=== PATIENT | female | born 1955 | race Asian ===

== ENCOUNTER 2019-11-29 11:40 | Emergency (ER) | payer OTHER ==
--- NOTE | 2019-11-29 11:47 | PDOC ---
History of Present Illness - General Chief Complaint: Bite Stated Complaint: BIT BY A RACCOON ON RIGHT HAND LAST NIGHT Time Seen by Provider: 11/29/19 11:46 - History of Present Illness Initial Comments: 11/29/19 12:56 64F with no significant PMH presents to ED after a raccoon bite when she was feeding them in her backyard. Initially it bled, she washed it at home but came in because of rabies prophylaxis. She reports minimal pain at the right hand at the site w/o erythema, warmth, or drainage. Denies any other symptoms. PMH: as in HPI SH: see below Meds: none Allergies: NKDA ROS GENERAL/CONSTITUTIONAL: No fever or chills. No weakness. HEENT: No change in vision. No ear pain or discharge. No sore throat. CARDIOVASCULAR: No chest pain or shortness of breath RESPIRATORY: No cough, wheezing, or hemoptysis. GASTROINTESTINAL: No nausea, vomiting, diarrhea or constipation. GENITOURINARY: No dysuria, frequency, or change in urination. MUSCULOSKELETAL: No joint or muscle swelling or pain. No neck or back pain. Right hand pain. SKIN: No rash NEUROLOGIC: No headache, vertigo, loss of consciousness, or change in strength/sensation. ENDOCRINE: No increased thirst. No abnormal weight change HEMATOLOGIC/LYMPHATIC: No anemia, easy bleeding, or history of blood clots. ALLERGIC/IMMUNOLOGIC: No hives or skin allergy. PE GENERAL: AOx3; no apparent distress HEAD: No signs of trauma, NC/AT EYES: PERRLA, EOMI, sclera anicteric, conjunctiva clear ENT: Auricles normal inspection, hearing grossly normal, nares patent, moist mucosa, oropharynx clear without exudates. NECK: Normal ROM, supple, no LAD, JVD, or masses HEART: RRR, normal S1/S2, no murmurs, rubs, or gallops. Peripheral pulses 2+ and equal bilaterally. LUNGS: No distress, speaks full sentences, CTA bilaterally ABDOMEN: Soft, nontender. No guarding, no rebound. No masses EXTREMITIES: single small punctate wound at right thenar eminence, no surrounding swelling, erythema, or warmth NEUROLOGICAL: CNII-XII intact. Normal speech. No focal sensorimotor deficits SKIN: Warm, Dry, normal turgor. No rashes or lesions noted Assessment and Plan 1. Rabies vaccine and Ig + tetanus vaccine Kee Kimball, PGY1 Emergency Medicine Past History - Medical History Allergies/Adverse Reactions: Allergies Allergy/AdvReac Type Severity Reaction Status Date / Time No Known Allergies Allergy Unverified 11/29/19 11:42 Home Medications: Ambulatory Orders NK [No Known Home Medication] 11/29/19 Medical Decision Making - Medical Decision Making 11/29/19 13:00 64F p/w right hand punctate wound 2/2 raccoon bite. No evidence of cellulitis. - > no diagnostics indicated at this time -> wound irrigated with NS -> given rabies immunoglobin, rabies vaccine, and tetanus vaccine Pt stable for discharge, and was directed for dates of return for rabies vaccine series. Discharge - Discharge Information Problems reviewed: Yes Clinical Impression/Diagnosis: Rabies, need for prophylactic vaccination against Condition: Stable Disposition: HOME - Admission No - Follow up/Referral - Patient Discharge Instructions Patient Printed Discharge Instructions: DI for Rabies Vaccine, DI for Animal Bites Additional Instructions: You were seen in the emergency department for raccoon bite to the right hand. You were given rabies immunoglobin, rabies vaccine, and tetanus shot in the emergency department. Return to the emergency department on the following dates for rabies vaccine series: - Tuesday, December 01 - , December 05 - , December 12 Please follow up with your primary care physician regarding your visit to the emergency department. If you experience profound hand swelling, with warmth or drainage of pus, please return to the emergency department or call 911. - Post Discharge Activity
[2019-11-29 12:11] VITALS: BP 137/64; PULSE 62; TEMP 99.4; BMI 19.3
[2019-11-29] MEDS ORDERED: DIPHTH,PERTUSS(ACELL),TET 0.5 ML DISP.SYRIN IM ONE ×2 (12:12→12:28)
[2019-11-29] MEDS ORDERED: RABIES IMMUNE GLOBULIN 300 UNITS/1 ML VIAL IM ONE (12:12)
[2019-11-29] MEDS ORDERED: RABIES VACCINE (PCEC)/PF 2.5 UNIT/VIAL IM ONE ×2 (12:15→12:28)
[2019-11-29] MEDS ORDERED: RABIES IMMUNE GLOBULIN 300 UNITS/1 ML VIAL ONE (12:28)
--- NOTE | 2019-11-29 12:35 | PDOC ---
Attending Attestation - Resident Resident Name: Kee Kimball - ED Attending Attestation I have performed the following: I have examined & evaluated the patient, The case was reviewed & discussed with the resident, I agree w/resident's findings & plan - HPI HPI: 11/29/19 12:31 64 YOF with raccoon bite to her right hand, she was feeding a family of raccoons with tray and one got excited and bit her right hand mild pain to the area no f/c, discharge, weakness numbness or tingling - Physicial Exam PE: 11/29/19 12:32 General: NAD, well appearing Vascular: 2+ radialis pulses symmetric and equal. Neuro: distal insurance defense paralegal strength 5/5. sensation grossly intact in median/radial/ulnar distribution. MSK: soft compartments, Cap refill <2 sec. 2+ radialis pulses bilaterally and symmetric. FDP/FDS intact. no joint tenderness. FROM. Skin: color normal color, warm and well perfused. puncture wound to the right thenar eminence nonbleeding, nontender. no streaking 11/29/19 12:34 - Medical Decision Making 11/29/19 12:34 Vital Signs Temp Pulse Resp BP Pulse Ox 99.4 F 62 16 137/64 100 11/29/19 11:42 11/29/19 11:42 11/29/19 11:42 11/29/19 11:42 11/29/19 11:42 vitals wnl, reassuring raccoon bite, wildlife, rabies risk wound/laceration assessed and repaired, w/o complications copious irrigation with sterile water/normal saline approx 1 Liter, tolerated without difficulty. areas cleaned and dried, and supportive care. No sutures indicated OR sutures placed for wound approximation injection of rabies IG into the wound 20 iu/kg, then the vaccine and tdap updated repeat rabies IM vaccine on days 3, 7, 14 dates 12/01 12/05 12/12 no abx indicated at this time, as she has no systemic findings and she was copiously cleaned out with splash guard return sooner for reeval/wound check/IV abx. keep area clean and covered, may clean with soap and water. motrin/tylenol as needed for pain control. 11/29/19 13:09 11/29/19 13:10 Discharge - Discharge Information Problems reviewed: Yes Clinical Impression/Diagnosis: Rabies, need for prophylactic vaccination against Condition: Stable Disposition: HOME - Admission No - Follow up/Referral Referrals: Emergency Dept,Physician, MD [Emergency Physician] - - Patient Discharge Instructions Patient Printed Discharge Instructions: DI for Animal Bites, DI for Rabies Vaccine, How to Care for a Wild Animal Bite Additional Instructions: You were seen in the emergency department for raccoon bite to the right hand. You were given rabies immunoglobin, rabies vaccine, and tetanus shot in the emergency department. Return to the emergency department on the following dates for rabies vaccine series: - Tuesday, December 01 - , December 05 - , December 12 Please follow up with your primary care physician regarding your visit to the emergency department. If you experience profound hand swelling, with warmth or drainage of pus, please return to the emergency department or call 911. - Post Discharge Activity
== END 2019-11-29 13:20 | disposition home or self-care (01) ==
LOC: FER 11:40
PROC: 3E0234Z Introduction of Serum, Toxoid and Vaccine into Muscle, Percutaneous Approach (ICD-10-PCS; principal; 2019-11-29)
DX: S61.431A Puncture wound without foreign body of right hand, initial encounter (principal); Z29.14 Encounter for prophylactic rabies immune globulin
CPT/HCPCS: 90375; 90675; 90715; 99284-25

== ENCOUNTER 2019-12-02 10:11 | Emergency (ER) | payer OTHER ==
--- OUTSIDE RECORDS SUMMARY | 2019-12-02 10:20 | XMS ---
:1955 Author Organization [facility] Support Name Relationship Address Phone UE Unavailable Unavailable Unavailable MAKENNA PORRAS [address] [place] [address] MAKENNA PORRAS Spouse [address] [place] [place] [address] Re-disclosure Warning The records that you are about to access may contain information from federally- assisted alcohol or drug abuse programs. If such information is present, then the following federally mandated warning applies: This information has been disclosed to you from records protected by federal confidentiality rules (42 CFR part 2). The federal rules prohibit you from making any further disclosure of this information unless further disclosure is expressly permitted by the written consent of the person to whom it pertains or as otherwise permitted by 42 CFR part 2. A general authorization for the release of medical or other information is NOT sufficient for this purpose. The Federal rules restrict any use of the information to criminally investigate or prosecute any alcohol or drug abuse patient.The records that you are about to access may contain highly sensitive health information, the redisclosure of which is protected by Article 27-F of the [facility] Public Health law. If you continue you may haveaccess to information: Regarding HIV / AIDS; Provided by facilities licensed or operated by the [facility] Office of Mental Health; or Provided by the [facility] Office for People With Developmental Disabilities. If such information is present, then the following [facility] mandated warning applies: This information has been disclosed to you from confidential records which are protected by state law. State law prohibits you from making any further disclosure of this information without the specific written consent of the person to whom it pertains, or as otherwise permitted by law. Any unauthorized further disclosure in violation of state law may result in a fine or long-term sentence or both. A general authorization for the release of medical or other information is NOT sufficient authorization for further disclosure. Insurance Providers Payer name Policy type Policy ID Covered Covered constitution party's Policy P maryam / Coverage constitution party ID relationship to Zhong Inf ormation type zhong [employer] [id number] HEALTH CARE HMO/POS/EPO [employer] [id number] SP [id number] HEALTH CARE HMO/POS/EPO
[2019-12-02] MEDS ORDERED: RABIES VACCINE (PCEC)/PF 2.5 UNIT/VIAL IM ONE ×2 (10:32→10:38)
--- NOTE | 2019-12-02 10:32 | PDOC ---
*Physical Exam - Vital Signs Last Vital Signs Temp Pulse Resp BP Pulse Ox 99.1 F 73 19 135/56 L 100 12/02/19 10:12 12/02/19 10:12 12/02/19 10:12 12/02/19 10:12 12/02/19 10:12 - Physical Exam 12/02/19 10:38 Patient presents for second in her series of rabies immunizations. She was bitten on the right hand by a baby raccoon. She approached the animal herself and attempted to pick it out. The animal appeared healthy and there was no unprovoked attack. Alert oriented no acute distress cooperative Afebrile, vital signs normal Puncture wound on right thenar eminence of the palm appears to be healing well. There is no swelling, erythema, warmth, drainage, or other sign of infection. Sites of prior immunization on both upper arms show no significant reaction. Impression: Rabies immunization Plan: Rabies vaccine today. Continue series of immunizations. Discharge - Discharge Information Problems reviewed: Yes Clinical Impression/Diagnosis: Encounter for repeat administration of rabies vaccination Condition: Stable Disposition: HOME - Admission No - Follow up/Referral - Patient Discharge Instructions Patient Printed Discharge Instructions: DI for Rabies Vaccine - Post Discharge Activity
[2019-12-02 10:40] VITALS: BP 135/56; PULSE 73; TEMP 99.1; BMI 19.3
== END 2019-12-02 10:46 | disposition home or self-care (01) ==
LOC: FER 10:11
PROC: 3E0234Z Introduction of Serum, Toxoid and Vaccine into Muscle, Percutaneous Approach (ICD-10-PCS; principal; 2019-12-02)
DX: Z20.3 Contact with and (suspected) exposure to rabies (principal)
CPT/HCPCS: 90675; 99283-25

== ENCOUNTER 2019-12-06 09:57 | Emergency (ER) | payer OTHER ==
--- NOTE | 2019-12-06 10:00 | PDOC ---
History of Present Illness - General Chief Complaint: Revisit,Rabies Injection Stated Complaint: RABIES VACCINE Time Seen by Provider: 12/06/19 09:59 History Source: Patient Exam Limitations: No Limitations - History of Present Illness Initial Comments: 64 year old female who was recently bit by kalani, 11/29/19, presented to ED for rabies post-exposure prophylaxis. She obtained the first vaccinations 11/29/19, second on 12/13/19, and is returning today for the third. Pt denied any complaints. Pt reported the bite site, her right hand, has been getting better, denied erythema, swelling, fever, vomiting. Past History - Medical History Allergies/Adverse Reactions: Allergies Allergy/AdvReac Type Severity Reaction Status Date / Time No Known Allergies Allergy Verified 12/06/19 09:58 Home Medications: Ambulatory Orders NK [No Known Home Medication] 11/29/19 COPD: No - Psycho-Social/Smoking History Smoking History: Never smoked Review of Systems - Review of Systems Able to Perform ROS?: Yes Is the patient limited Mohawk proficient: No Constitutional: No: Chills, Fever HEENTM: No: Double Vision Respiratory: No: Cough, Wheezing Cardiac (ROS): No: Chest Pain, Syncope ABD/GI: No: Diarrhea, Nausea, Vomiting, Abdominal cramping : No: Dysuria, Discharge Musculoskeletal: No: Back Pain, Joint Pain, Joint Swelling Integumentary: No: Erythema, Pruritus, Rash Neurological: No: Headache, Seizure, Tremors, Weakness, Ataxia, Dizziness *Physical Exam - Physical Exam General Appearance: Yes: Appropriately Dressed HEENT: positive: EOMI, Symmetrical. negative: Sinus Tenderness Neck: positive: Trachea midline, Supple. negative: Tender, Rigid, Decreased range of motion Respiratory/Chest: positive: Lungs Clear, Normal Breath Sounds. negative: Chest Tender, Respiratory Distress, Accessory Muscle Use, Labored Respiration, Rales, Rhonchi, Wheezing Cardiovascular: positive: Regular Rhythm, Regular Rate, S1, S2 Gastrointestinal/Abdominal: positive: Normal Bowel Sounds, Flat, Soft. negative: Tender, Organomegaly, Tenderness Musculoskeletal: positive: Other (2 punctate wounds to the right palm, no erythema, no crepitus, no swelling, full ROM all fingers and wrist, neurovascularly intact) Extremity: positive: Normal Capillary Refill, Normal Inspection, Normal Range of Motion, Pelvis Stable. negative: Tender Neurologic: positive: rug cleaner II-XII NML intact, Fully Oriented, Alert, Normal Response, Motor Strength 06/25 Medical Decision Making - Medical Decision Making 64 year old female presented to ED for 3rd Rabies post exposure prophylaxis. Initial Vital Signs Temp Pulse Resp BP Pulse Ox 99.2 F 75 15 142/56 L 100 12/06/19 09:58 12/06/19 09:58 12/06/19 09:58 12/06/19 09:58 12/06/19 09:58 Medications given Rabies Vaccine (Pcec)/Pf [Rabavert Rabies Vaccine] 2.5 unit IM .ONCE ONE Pt to return 12/12 for final vaccination. Pt agrees with plan for care. Wound to right hand appears to be healing well. Pt discharged. Discharge - Discharge Information Problems reviewed: Yes Clinical Impression/Diagnosis: Need for post exposure prophylaxis for rabies Condition: Stable Disposition: HOME - Admission No - Follow up/Referral - Patient Discharge Instructions Patient Printed Discharge Instructions: DI for Rabies Vaccine Additional Instructions: You have receieved the third of four rabies vaccinations. You will need to return on 12/13/19 for your final vaccionation. Your care is not complete until you follow up. Return to the ER for chest pain, shortness of breath, numbness, weakness, difficulty walking, muscle pain, or any other new, worsening or concerning symptoms. - Post Discharge Activity Work/Back to School Note: Back to Work, Rabies Vaccination F/U [facility].
[2019-12-06] MEDS ORDERED: RABIES VACCINE (PCEC)/PF 2.5 UNIT/VIAL IM ONE ×2 (10:04→10:09)
[2019-12-06 10:07] VITALS: BP 142/56; PULSE 75; TEMP 99.2; BMI 19.3
--- NOTE | 2019-12-06 10:22 | PDOC ---
Attending Attestation - Resident Resident Name: Gale Hogue - ED Attending Attestation I have performed the following: I have examined & evaluated the patient, The case was reviewed & discussed with the resident, I agree w/resident's findings & plan - HPI HPI: 12/06/19 10:21 64y/o F here for 3rd in series of rabies vaccinations. no prior issues, no complaints. - Physicial Exam PE: 12/06/19 10:21 afebrile normal exam - Medical Decision Making 12/06/19 10:21 64y/o F here for scheduled 3rd rabies vaccination. administered without complication will continue to follow schedule Discharge - Discharge Information Problems reviewed: Yes Clinical Impression/Diagnosis: Need for post exposure prophylaxis for rabies Condition: Stable Disposition: HOME - Follow up/Referral - Patient Discharge Instructions Patient Printed Discharge Instructions: DI for Rabies Vaccine Additional Instructions: You have receieved the third of four rabies vaccinations. You will need to return on 12/13/19 for your final vaccionation. Your care is not complete until you follow up. Return to the ER for chest pain, shortness of breath, numbness, weakness, difficulty walking, muscle pain, or any other new, worsening or concerning symptoms. - Post Discharge Activity Work/Back to School Note: Back to Work, Rabies Vaccination F/U [facility].
--- OUTSIDE RECORDS SUMMARY | 2019-12-06 10:34 | XMS ---
:1955 Author Organization [facility] Support Name Relationship Address Phone UE Unavailable Unavailable Unavailable MAKENNA PORRAS [address] [place] [address] MAKENNA PORRAS Spouse [address] [place] [address] Re-disclosure Warning The records that you are [...] is protected by Article 27-F of the [facility] Public Health law. If you continue you may haveaccess to information: Regarding HIV / AIDS; Provided by facilities licensed or operated by the [facility] Office of Mental Health; or Provided by the [facility] Office for People With Developmental Disabilities. If such information is present, then the following [facility] mandated warning applies: This information has been [...] law may result in a fine or skilled nursing sentence or both. A general authorization for the release of medical or other information is NOT sufficient authorization for further disclosure. Insurance Providers Payer name Policy type Policy ID Covered Covered green party's Policy P maryam / Coverage green party ID relationship to Zhong Inf ormation type zhong [employer] [id number] HEALTH CARE HMO/POS/EPO [employer] [id number] SP [id number] HEALTH CARE HMO/POS/EPO
== END 2019-12-06 10:20 | disposition home or self-care (01) ==
LOC: FER 09:57
PROC: 3E0234Z Introduction of Serum, Toxoid and Vaccine into Muscle, Percutaneous Approach (ICD-10-PCS; principal; 2019-12-06)
DX: Z29.14 Encounter for prophylactic rabies immune globulin (principal)
CPT/HCPCS: 90675; 99281-25

== ENCOUNTER 2021-06-15 00:05 | Emergency (ER) | payer OTHER ==
[2021-06-15 00:12] VITALS: BP 142/92; PULSE 64; TEMP 98.2; BMI 19.5
== END 2021-06-15 01:04 | disposition home or self-care (01) ==
LOC: FER 00:05
DX: S61.412A Laceration without foreign body of left hand, initial encounter (principal); W55.52XA Struck by raccoon, initial encounter
CPT/HCPCS: 99281-25

== ENCOUNTER 2021-10-08 20:01 | Emergency (ER) | payer OTHER ==
[2021-10-08 20:19] VITALS: BP 153/89; PULSE 66; RESP 18; TEMP 98.9; BMI 19.5
[2021-10-08] MEDS ORDERED: RABIES VACCINE (PCEC)/PF 2.5 UNIT/VIAL IM ONE ×2 (21:11→21:12)
[2021-10-08] MEDS ORDERED: CLINDAMYCIN HCL 300 MG CAPSULE PO ONE (21:23)
[2021-10-08] MEDS ORDERED: CLINDAMYCIN HCL 150 MG CAPSULE (FP) ONE (21:26)
== END 2021-10-08 21:40 | disposition home or self-care (01) ==
LOC: FER 20:01
PROC: 3E0234Z Introduction of Serum, Toxoid and Vaccine into Muscle, Percutaneous Approach (ICD-10-PCS; principal; 2021-10-08)
DX: S61.051A Open bite of right thumb without damage to nail, initial encounter (principal); W55.51XA Bitten by raccoon, initial encounter
CPT/HCPCS: 90471; 90675; 99284-25

== ENCOUNTER 2021-10-11 15:47 | Emergency (ER) | payer OTHER ==
[2021-10-11 16:00] VITALS: BP 116/74; PULSE 66; RESP 16; TEMP 98; BMI 19.5
[2021-10-11] MEDS ORDERED: RABIES VACCINE (PCEC)/PF 2.5 UNIT/VIAL IM ONE ×2 (16:07→16:08)
== END 2021-10-11 16:20 | disposition home or self-care (01) ==
LOC: FER 15:47
PROC: 3E023GC Introduction of Other Therapeutic Substance into Muscle, Percutaneous Approach (ICD-10-PCS; principal; 2021-10-11)
DX: S61.051A Open bite of right thumb without damage to nail, initial encounter (principal); W55.51XA Bitten by raccoon, initial encounter; Z20.3 Contact with and (suspected) exposure to rabies
CPT/HCPCS: 90675; 96372; 99283-25